=== PATIENT | female | born 1980 | race Caucasian/White ===

== ENCOUNTER 2017-02-10 08:39 | Emergency (ER) | payer BC ==
[~2017-02-10 08:39] MED LIST: ATIVAN0.5 M1 PO; ATIVAN1 M2 PO; BENADRYL50 MG PO; CALCIUM C PO; DEPO-PROVER150 MG/ML IM; DIATX TABLET5 MG PO; DOCUSATE CALCI100 MG PO; FIBER DIET PO; FIORICET1 TA1 PO; FLEXERIL10 MG PO; MIRALAX17 GM PO; NEXIUM40 MG PO; PRENATAL1 EACH PO; PRILOSEC OTC20 MG PO; PROPRANOLOL HCL80 MG PO; SEROQUEL XR150 MG PO; TOPAMAX100 MG PO; VICODIN ES 7.51 EACH PO; VITAMIN D1000 UNIT PO
[2017-02-10] MEDS ORDERED: HYDROCHLOROTHIA25 M1 PO (08:55)
[2017-02-10 09:32] LABS: CREATININE 0.83 mg/dl (0.67-1.17); eGFR VALUE FOR BLACK >90 mL/Min
[2017-02-10 09:45] LABS: URINE BILIRUBIN NEGATIVE (NEG); URINE BLOOD LARGE (NEG); URINE GLUCOSE (UA) NEGATIVE (NEG); URINE KETONE NEGATIVE (NEG); URINE LEUKOCYTE ESTERASE POSITIVE (NEG); URINE NITRITE NEGATIVE (NEG); URINE PROTEIN MODERATE (NEG); URINE SPECIFIC GRAVITY 1.025 (1.003-1.030)
[2017-02-10 09:48] LABS: URINE APPEARANCE CLEAR; URINE COLOR YELLOW
[2017-02-10 10:00] LABS: URINE RBC 50-60 /[HPF] (0-5)
[2017-02-10 10:01] LABS: URINE MUCUS 1+
[2017-02-10] MEDS ORDERED: ZOFRAN4 M2 PO (10:32)
[2017-02-10] MEDS ORDERED: FLOMAX0.4 M1 PO (10:32)
[2017-02-10] MEDS ORDERED: NORCO 5-325 TA1 EACH PO (10:32)
== END 2017-02-10 10:52 ==
LOC: EDMED 08:39
PROVIDERS: Emergency Medicine
DX: N20.2 Calculus of kidney with calculus of ureter (principal); K76.9 Liver disease, unspecified; F17.210 Nicotine dependence, cigarettes, uncomplicated; Z87.442 Personal history of urinary calculi; Z90.49 Acquired absence of other specified parts of digestive tract
CPT/HCPCS: J1885; J2405; J7030